=== PATIENT | male | born 1930 | race Caucasian/White ===

== ENCOUNTER 2016-07-29 17:12 | Inpatient (IN) | payer OTHER ==
[~2016-07-29] VITALS: Ht 175.3 cm; Wt 64.0 kg
[2016-07-29 18:09] LABS: BASOPHIL % 1.4 % (0-2); PLATELET COUNT 215 x10^3mcL (130-400)
[2016-07-29 18:15] LABS: RED CELL DISTRIBUTION WIDTH 23.1 % (11.5-14.5)
[2016-07-29 18:21] LABS: ALKALINE PHOSPHATASE 134 U/L (46-116); ALT/SGPT 12 U/L (16-63); AST/SGOT 15 U/L (15-37); BILIRUBIN TOTAL 0.3 mg/dL (0.20-1.00); CALCIUM 9.8 mg/dL (8.5-10.1); CARBON DIOXIDE 34.2 mmol/L (21-32); CHLORIDE SERUM 92 mmol/L (98-107); GLUCOSE SERUM 104 mg/dL (74-106); POTASSIUM SERUM 3.9 mmol/L (3.5-5.1); SODIUM SERUM 131 mmol/L (136-145)
[2016-07-29 18:29] LABS: ALBUMIN 2.9 g/dL (3.4-5.0); CREATININE SERUM 4.9 mg/dL (0.7-1.3); TOTAL PROTEIN, SERUM 6.1 g/dL (6.4-8.2)
[2016-07-29] MEDS ORDERED: RENVELA800 M1 PO (19:13)
[2016-07-29] MEDS ORDERED: MEGL PO (19:13)
[2016-07-29] MEDS ORDERED: VALSARTAN160 MG PO (19:14)
[2016-07-29] MEDS ORDERED: COL-RITE250 MG PO (19:14)
[2016-07-29] MEDS ORDERED: SENSIPAR30 M1 PO (19:15)
[2016-07-29] MEDS ORDERED: LOVASTATIN20 MG PO (19:16)
[2016-07-29] MEDS ORDERED: ACT30 PO (19:16)
[2016-07-29] MEDS ORDERED: ASPIRIN325 MG PO (19:17)
[2016-07-29] MEDS ORDERED: NOR10 PO (19:17)
[2016-07-29] MEDS ORDERED: NATURE'S BLEND F1 MG PO (19:17)
[2016-07-29] MEDS ORDERED: CATAPRES0.1 MG PO (19:18)
[2016-07-29 19:55] LABS: T3 TOTAL 0.62 ng/mL
[2016-07-29 19:57] LABS: MAGNESIUM 2.2 mg/dL (1.8-2.4); PHOSPHOROUS 1.5 mg/dL (2.5-4.9)
[2016-07-29 20:03] VITALS: BP 102/46
[2016-07-29 20:03] LABS: CHOLESTEROL/HDL RATIO 1.5
[2016-07-29 20:09] LABS: FREE T4 0.94 ng/dL (0.76-1.46); FREE THYROXINE INDEX 2.4 ug/dL (1.4-4.5); T4(THYROXINE) 6.8 ug/dL (4.7-13.3)
[2016-07-30] VITALS (7 sets, daily range): BP systolic 102–138; BP diastolic 43–76
[2016-07-30 06:04] LABS: BASOPHIL % 0.4 % (0-2); PLATELET COUNT 200 x10^3mcL (130-400)
[2016-07-30 06:20] LABS: CALCIUM 9.4 mg/dL (8.5-10.1); CARBON DIOXIDE 29.8 mmol/L (21-32); CHLORIDE SERUM 98 mmol/L (98-107); GLUCOSE SERUM 97 mg/dL (74-106); MAGNESIUM 2.2 mg/dL (1.8-2.4); PHOSPHOROUS 1.8 mg/dL (2.5-4.9); SODIUM SERUM 136 mmol/L (136-145)
[2016-07-30 06:36] LABS: RED CELL DISTRIBUTION WIDTH 22.7 % (11.5-14.5)
[2016-07-30 06:43] LABS: CREATININE SERUM 5.7 mg/dL (0.7-1.3)
[2016-07-31 05:57] LABS: BASOPHIL % 0.6 % (0-2); PLATELET COUNT 201 x10^3mcL (130-400)
[2016-07-31 06:03] VITALS: BP 128/47
[2016-07-31 06:28] LABS: CALCIUM 9.3 mg/dL (8.5-10.1); CARBON DIOXIDE 27.6 mmol/L (21-32); CHLORIDE SERUM 105 mmol/L (98-107); CREATININE SERUM 3.4 mg/dL (0.7-1.3); GLUCOSE SERUM 88 mg/dL (74-106); MAGNESIUM 1.8 mg/dL (1.8-2.4); PHOSPHOROUS 1.9 mg/dL (2.5-4.9); POTASSIUM SERUM 4.1 mmol/L (3.5-5.1); SODIUM SERUM 142 mmol/L (136-145)
[2016-07-31 07:13] LABS: RED CELL DISTRIBUTION WIDTH 23.2 % (11.5-14.5)
[2016-07-31 09:59] VITALS: BP 153/58
[2016-07-31 17:26] VITALS: BP 112/54
[2016-07-31 21:38] VITALS: BP 129/58
[2016-08-01 02:34] LABS: AMPHETAMINE QUAL UR NONE DETECTED (NEG <=1000)
[2016-08-01 06:16] LABS: BASOPHIL % 0.4 % (0-2); PLATELET COUNT 202 x10^3mcL (130-400)
[2016-08-01 06:17] VITALS: BP 148/65
[2016-08-01 06:41] LABS: CALCIUM 9.8 mg/dL (8.5-10.1); CARBON DIOXIDE 25.8 mmol/L (21-32); CHLORIDE SERUM 97 mmol/L (98-107); GLUCOSE SERUM 183 mg/dL (74-106); MAGNESIUM 1.9 mg/dL (1.8-2.4); PHOSPHOROUS 2.2 mg/dL (2.5-4.9); POTASSIUM SERUM 4.9 mmol/L (3.5-5.1); SODIUM SERUM 134 mmol/L (136-145)
[2016-08-01 06:52] LABS: RED CELL DISTRIBUTION WIDTH 23.6 % (11.5-14.5)
[2016-08-01 06:54] LABS: CREATININE SERUM 4.3 mg/dL (0.7-1.3)
[2016-08-01 07:42] LABS: rbc morphology (normal/abnorm) ABNORMAL (NORMAL)
[2016-08-01 09:12] VITALS: BP 141/52
[2016-08-01] MEDS ORDERED: CATAPRES0.1 MG PO (10:17)
[2016-08-01] MEDS ORDERED: XARELTO15 M1 PO (10:25)
[2016-08-01] MEDS ORDERED: LEVAQUIN500 M1 PO (10:28)
[2016-08-01] MEDS ORDERED: CLEOCIN HCL300 MG PO (10:28)
[2016-08-01] MEDS ORDERED: LAC PO (10:29)
[2016-08-01 10:49] VITALS: BP 141/52
[2016-08-01 12:19] VITALS: BP 148/59
[2016-08-01 17:58] VITALS: BP 122/53
[2016-08-01 21:25] VITALS: BP 121/46
[2016-08-02 05:21] VITALS: BP 120/52
[2016-08-02 08:05] VITALS: BP 143/56
[2016-08-02 13:26] VITALS: BP 127/56
[2016-08-02 15:52] VITALS: Ht 175.3 cm; Wt 64.0 kg
[2016-08-02 16:42] VITALS: BP 127/56
[2016-08-02 17:21] VITALS: BP 123/50
[2016-08-02 20:28] VITALS: BP 113/51
[2016-08-03 05:24] VITALS: BP 112/41
[2016-08-03 06:52] LABS: BASOPHIL % 0.4 % (0-2); PLATELET COUNT 150 x10^3mcL (130-400)
[2016-08-03 07:02] LABS: CARBON DIOXIDE 28.7 mmol/L (21-32); CHLORIDE SERUM 97 mmol/L (98-107); GLUCOSE SERUM 106 mg/dL (74-106); PHOSPHOROUS 2.4 mg/dL (2.5-4.9); POTASSIUM SERUM 4.6 mmol/L (3.5-5.1); SODIUM SERUM 133 mmol/L (136-145)
[2016-08-03 07:09] LABS: CREATININE SERUM 4.2 mg/dL (0.7-1.3)
[2016-08-03 07:14] LABS: RED CELL DISTRIBUTION WIDTH 24.1 % (11.5-14.5)
[2016-08-03 08:51] VITALS: BP 131/55
[2016-08-03 09:35] LABS: rbc morphology (normal/abnorm) ABNORMAL (NORMAL)
[2016-08-03 10:27] VITALS: BP 131/55
== END 2016-08-03 12:07 | disposition home health service (06) | DRG 177 ==
LOC: ED 17:12 → DU 19:06
PROVIDERS: Emergency Medicine; Family Medicine; ADMIT Family Medicine
DX: J69.0 Pneumonitis due to inhalation of food and vomit (principal); N17.0 Acute kidney failure with tubular necrosis; N18.6 End stage renal disease; I50.43 Acute on chronic combined systolic (congestive) and diastolic (congestive) heart failure; I13.2 Hypertensive heart and chronic kidney disease with heart failure and with stage 5 chronic kidney disease, or end stage renal disease; E87.1 Hypo-osmolality and hyponatremia; E44.0 Moderate protein-calorie malnutrition; D68.69 Other thrombophilia; Z68.1 Body mass index [BMI] 19.9 or less, adult; I48.91 Unspecified atrial fibrillation; E11.51 Type 2 diabetes mellitus with diabetic peripheral angiopathy without gangrene; E11.21 Type 2 diabetes mellitus with diabetic nephropathy; J44.9 Chronic obstructive pulmonary disease, unspecified; D63.1 Anemia in chronic kidney disease; M62.50 Muscle wasting and atrophy, not elsewhere classified, unspecified site; E83.39 Other disorders of phosphorus metabolism; Z99.2 Dependence on renal dialysis; Z86.73 Personal history of transient ischemic attack (TIA), and cerebral infarction without residual deficits; Z79.84 Long term (current) use of oral hypoglycemic drugs
CPT/HCPCS: 36600; 82962; 83880; 84439; 97110-GP; 97116-GP; 97530-GP; J0885-EC; J1644; J2543; J7030; J7620; J8597; Q0092; Q0163

== ENCOUNTER 2018-07-26 03:41 | Emergency (ER) | payer OTHER ==
[~2018-07-26] VITALS: Ht 167.6 cm; Wt 54.4 kg
[~2018-07-26 03:41] MED LIST: ACT30 PO; ASPIRIN325 MG PO; CATAPRES0.1 MG PO; CLEOCIN HCL300 MG PO; COL-RITE250 MG PO; LAC PO; LEVAQUIN500 M1 PO; LOVASTATIN20 MG PO; MEGL PO; NATURE'S BLEND F1 MG PO; NOR10 PO; RENVELA800 M1 PO; SENSIPAR30 M1 PO; VALSARTAN160 MG PO; XARELTO15 M1 PO
[2018-07-26 03:48] VITALS: Ht 167.6 cm; Wt 54.4 kg
[2018-07-26 04:41] LABS: BASOPHIL % 0.7 % (0-2); PLATELET COUNT 173 x10^3mcL (130-400)
[2018-07-26 04:42] LABS: RED CELL DISTRIBUTION WIDTH 16.6 % (11.5-14.5)
[2018-07-26 04:54] LABS: ALKALINE PHOSPHATASE 76 U/L (46-116); ALT/SGPT 6 U/L (16-63); AST/SGOT 11 U/L (15-37); BILIRUBIN TOTAL 1.64 mg/dL (0.20-1.00); CARBON DIOXIDE 31.8 mmol/L (21-32); CHLORIDE SERUM 98 mmol/L (98-107); GLUCOSE SERUM 117 mg/dL (74-106); POTASSIUM SERUM 4.1 mmol/L (3.5-5.1); SODIUM SERUM 139 mmol/L (136-145)
[2018-07-26 05:02] LABS: ALBUMIN 2.7 g/dL (3.4-5.0)
[2018-07-26 05:03] LABS: CREATININE SERUM 4.8 mg/dL (0.7-1.3)
[2018-07-26 06:02] VITALS: BP 128/64
== END 2018-07-26 06:02 | disposition home or self-care (01) ==
LOC: ED 03:41
PROVIDERS: Emergency Medicine
DX: G89.29 Other chronic pain (principal); M54.5 Low back pain; E11.22 Type 2 diabetes mellitus with diabetic chronic kidney disease; I12.0 Hypertensive chronic kidney disease with stage 5 chronic kidney disease or end stage renal disease; N18.6 End stage renal disease; D64.9 Anemia, unspecified; Z99.2 Dependence on renal dialysis; Z86.73 Personal history of transient ischemic attack (TIA), and cerebral infarction without residual deficits
CPT/HCPCS: J1885